=== PATIENT | female | born 1980 | race Caucasian/White ===

== ENCOUNTER 2017-07-03 18:41 | Inpatient (IN) | payer OTHER ==
[~2017-07-03] VITALS: Ht 157.5 cm; Wt 89.5 kg
--- NOTE | 2017-07-03 19:31 | NUR ---
PT TO ED VIA TRIAGE W/ C/O R FLANK PAIN SINCE LAST SATURDAY HX OF KIDNEY STONESM, PT ON MONITOR VSS AWAIT ORDERS AND DISPO
[2017-07-03 20:06] LABS: BASOPHIL % 0.2 % (0-2); PLATELET COUNT 212 x10^3mcL (130-400); RED CELL DISTRIBUTION WIDTH 12.9 % (11.5-14.5)
[2017-07-03 20:14] LABS: CALCIUM 8.5 mg/dL (8.5-10.1); CARBON DIOXIDE 22.3 mmol/L (21-32); CHLORIDE SERUM 104 mmol/L (98-107); CREATININE SERUM 0.9 mg/dL (0.6-1.0); GFR1 > 60 mL/min; GLUCOSE SERUM 99 mg/dL (74-106); POTASSIUM SERUM 3.4 mmol/L (3.5-5.1); SODIUM SERUM 137 mmol/L (136-145)
[2017-07-03 20:19] LABS: ALKALINE PHOSPHATASE 84 U/L (46-116); ALT/SGPT 34 U/L (14-59); AST/SGOT 28 U/L (15-37); BILIRUBIN TOTAL 0.9 mg/dL (0.20-1.00); TOTAL PROTEIN, SERUM 8.2 g/dL (6.4-8.2); URIC ACID 2.5 mg/dL (2.6-6.0)
[2017-07-03 20:21] LABS: ALBUMIN 3.3 g/dL (3.4-5.0)
--- NOTE | 2017-07-03 21:22 | NUR ---
PT RESTING ON [facility] FAMILY AT BEDSIDE AWAIT RESULTS AND DISPO, VSS
--- NOTE | 2017-07-03 23:02 | NUR ---
REPORT CALLED TO FLOOR RN ALL QUESTIONS ASKED AND ANSWERED PT STABLE FOR TRANSFER, IVF RUNNING W/O COMPLICATIONS PT TRANSFERED TO ROOM 206A VIA [facility] ON MONITOR W/ RN. W/ ALL PERSONAL BELONGINGS
[2017-07-03 23:25] VITALS: BP 130/74
[2017-07-03 23:41] LABS: PHOSPHOROUS 2.5 mg/dL (2.5-4.9)
--- NOTE | 2017-07-03 23:41 | NUR ---
RECEIVED PT FROM ER VIA GURNEY ACCOMPANIED WITH NURSE AND EMT, PT SEEN, ALERT AND ORIENTED, DENIES DIZZINESS, C/O OF HEADACHE, PT WITH FEVER-101.8, COOLING MEASURE APPLIED, ON TELE#23 NSR, DENIES CHEST PAIN, PT STILL WITH BOLUS FROM ER, PULSES PALPABLE, NO EDEMA NOTED, AMBULATORY WITH STEADY GAIT, ABD ROUND AND SOFT WITH ACTIVE BS, NO BM AT THIS TIME, C/O OF SLIGHT BURNING ON URINATION, ENDORSED TO PRIMARY NURSE-ULZ FOR CONT NURSING CARE.
[2017-07-03 23:43] LABS: CHOLESTEROL/HDL RATIO 3.2
[2017-07-03 23:44] LABS: FREE T4 1.24 ng/dL (0.76-1.46); FREE THYROXINE INDEX 2.9 ug/dL (1.4-4.5); T4(THYROXINE) 7.3 ug/dL (4.7-13.3)
[2017-07-03 23:51] LABS: AMPHETAMINE QUAL UR NONE DETECTED (NEG <=1000); microscopic required? YES
[2017-07-03 23:52] LABS: urine erythrocyte 3+ (NEGATIVE)
[2017-07-04 00:16] LABS: T3 TOTAL 0.75 ng/mL
--- NOTE | 2017-07-04 02:00 | NUR ---
2L BOLUS COMPLETED. PT'S BP-119/73. NO DISTRESS OBSERVED AT THIS TIME. WILL CONTINUE TO MONITOR.
--- NOTE | 2017-07-04 03:08 | NUR ---
PT COMPLAINING OF 8/10 FLANK PAIN. ADMINISTERED MORPHINE ORDERED. WILL MONITOR FOR RELIEF.
[2017-07-04 05:53] VITALS: BP 115/65
[2017-07-04 06:10] LABS: PLATELET COUNT 204 x10^3mcL (130-400); RED CELL DISTRIBUTION WIDTH 12.8 % (11.5-14.5)
--- NOTE | 2017-07-04 06:14 | NUR ---
PT SLEPT WELL THROUGHOUT THE NIGHT. PT DENIES BACK PAIN AT THIS TIME. IVF INFUSING WELL. ALL NEEDS MET. WILL ENDORSE CARE TO AM NURSE.
[2017-07-04 06:20] LABS: CARBON DIOXIDE 20.2 mmol/L (21-32); CHLORIDE SERUM 106 mmol/L (98-107); CREATININE SERUM 0.8 mg/dL (0.6-1.0); GFR1 > 60 mL/min; GLUCOSE SERUM 86 mg/dL (74-106); POTASSIUM SERUM 3.5 mmol/L (3.5-5.1); SODIUM SERUM 138 mmol/L (136-145)
[2017-07-04 06:48] LABS: BAND NEUTROPHIL 3 % (0-10); MONOCYTE 10 % (0-7); SEGMENTED NEUTROPHILS 78 % (37-75)
[2017-07-04 06:49] LABS: rbc morphology (normal/abnorm) NORMAL (NORMAL)
--- NOTE | 2017-07-04 08:15 | NUR ---
ALERT AND ORIENTED. BREATHING FREELY ON RA. CURRENTLY NO DIET ORDER. TELE # 23 NSR. NS INFUSING 160 CC HOUR. STRAINING ALL URINE. C/O RIGHT FLANK PAIN 04/29 [place]ARP. WILL ADMIN MORPHINE 2 MG IV ORDERED. INDEPENDENT W ADL'S. WEARS SCD'S. CALL LIGHT WITHIN REACH.
[2017-07-04 10:52] VITALS: BP 120/67
[2017-07-04 14:00] VITALS: BP 118/69
[2017-07-04 17:34] VITALS: BP 127/81
--- NOTE | 2017-07-04 18:54 | NUR ---
TORADOL HELPFUL FOR RT FLANK PAIN. CONTINUES NS 160 CC HOUR. ROCEPHIN. REG DIET. INDEPENDENT W ADL'S. STRAINING ALL URINE. CALL LIGHT WITHN REACH.
--- NOTE | 2017-07-04 19:30 | NUR ---
PT A/O X4. TELE #23, NSR AT 73, DENIES CHEST PAIN. PULSES PALPABLE, NO EDEMA NOTED. LUNG SOUNDS CTA, BREATHING ON RA, NO RESP DISTRESS NOTED. ABD SOFT AND NONDISTENDED, BOWEL TONES ACTIVE, PT'S LBM-TODAY, FORMED. VOIDS ADEQUATELY, STRAIN ALL URINE. PT IS AMBULATORY WITHOUT ASSIST. SKIN IS INTACT. PT DENIES PAIN AT THIS TIME. IVF INFUSING WELL TO LFA. BED IN LOWEST SETTING, SIDE RAIL UP X2, CALL LIGHT WITHIN REACH. WILL CONTINUE TO MONITOR.
[2017-07-04 20:58] VITALS: BP 110/62
--- NOTE | 2017-07-05 02:01 | NUR ---
PT SLEEPING AT THIS TIME. BREATHING IS EVEN AND UNLABORED, NO SIGNS OF RESP DISTRESS NOTED, NO SIGNS OF PAIN OBSERVED. IVF IS INFUSING WELL. WILL CONTINUE TO MONITOR.
--- NOTE | 2017-07-05 04:36 | NUR ---
PT COMPLAINING OF 7/10 HEADACHE. ADMINISTERED TYLENOL ORDERED. WILL MONITOR FOR RELIEF.
[2017-07-05 05:43] VITALS: BP 120/70
[2017-07-05 06:30] LABS: BASOPHIL % 0.3 % (0-2); PLATELET COUNT 200 x10^3mcL (130-400)
--- NOTE | 2017-07-05 06:44 | NUR ---
PT SLEPT WELL THROUGHOUT THE NIGHT, PT DENIES FLANK PAIN AT THIS TIME. PT DENIES HEADACHE. ALL URINE STRAINED. IVF INFUSING WELL TO LFA. ALL NEEDS MET. WILL ENDORSE CARE TO AM NURSE.
[2017-07-05 07:05] LABS: CALCIUM 8.1 mg/dL (8.5-10.1); CARBON DIOXIDE 20.6 mmol/L (21-32); CHLORIDE SERUM 109 mmol/L (98-107); CREATININE SERUM 0.7 mg/dL (0.6-1.0); GFR1 > 60 mL/min; GLUCOSE SERUM 86 mg/dL (74-106); PHOSPHOROUS 2.8 mg/dL (2.5-4.9); POTASSIUM SERUM 3.4 mmol/L (3.5-5.1); SODIUM SERUM 140 mmol/L (136-145)
--- NOTE | 2017-07-05 07:45 | NUR ---
RECEIVED PATIENT RESTING IN BED COMFORTABLY A/O X4, CLEAR SPEECH, DENIES ADLER OR DIZZINESS. TELE # [address], DENIES CHEST PAIN, BREAHTING EVEN UNLABBORED ON RA, DENIES SOB, NO DISTRESS NOTED. SKIN IS WARM CDI WITH IV TO LFA INTACT INFUSING NS AT 160 ML/HR FREE FROM REDNESS AND INFILTRATION. PATIENT INSTRUCTED TO CONTINUE TO STRAIN ALL URINE TO SEE IF STONE HAS PASSED, VERBALIZED UNDERSTANDING. PATIENT CALM WITH CARE. INSTRUCTED TO CALL FOR ASSISTANCE IF NEEDED. CALL LIGHT WITHIN REACH, BED IN LOW POSITION. WILL CONTINUE TO MONITOR AND MAINTAIN SAFETY.
--- NOTE | 2017-07-05 08:18 | NUR ---
ROUNDS MADE- DR. BADILLO, RESIDENT TEAM, CHARGE NURSE AND PRIMARY NURSE AT BEDSIDE. POC REVIEWED WITH PATIENT- PATIENT WITH HISTORY OF KIDNEY STONES, ENCOURAGED LIFE STYLE CHANGES WHICH PATIENT STATES SHE HAS MADE. PATIENT WILL BE SEEN BY UROLOGIST AND HAVE A RETROGRADE CYSTO-URETROGRAM DONE TODAY. IF OKAY PATIENT MAY BE DISCHARGED HOME TODAY. ALL QUESTIONS AND CONCERNS ADDRESSED. WILL MONITOR.
[2017-07-05 09:35] VITALS: BP 105/60
--- NOTE | 2017-07-05 12:20 | NUR ---
PATIENT TAKEN DOWN TO RADIOLOGY FOR PROCEDURE. GLASS VIAL BENDING CONVEYOR FEEDER AWARE.
[2017-07-05 12:26] LABS: UA SPECIFIC GRAVITY <=1.005 (1.005-1.035); microscopic required? YES; urine erythrocyte 2+ (NEGATIVE)
--- NOTE | 2017-07-05 13:00 | NUR ---
RECEIVED PATIENT BACK FROM RADIOLOGY, FAMILY AT BEDSIDE. HARDWARE SALES ASSISTANT MADE AWARE. WILL MONITOR.
[2017-07-05 13:15] VITALS: BP 142/80
--- NOTE | 2017-07-05 16:48 | NUR ---
PATIENT C/O THROBBING RIGHT FLANK PAIN 04/29, TORADOL 30 MG IVP Q6H PRN GIVEN AT THIS TIME PER MD ORDER. PATIENTS MOTHER AT BEDSIDE, ALL NEEDS ATTENDED TO. WILL MONITOR.
--- NOTE | 2017-07-05 17:10 | NUR ---
DR. PICKARD (DO-RESIDENT) AT BEDSIDE TO SPEAK WITH PATIENT REGARDING PLAN OF CARE. PATIENT WAITING TO BE SEEN BY UROLOGIST. ALL QUESTIONS AND CONCERNS ADDRESSED. WILL MONITOR.
[2017-07-05 17:30] VITALS: BP 149/87
--- NOTE | 2017-07-05 19:20 | NUR ---
REPORT GIVEN TO ZOHRA EMMANUEL, ALL QUESTIONS AND CONCERNS ADDRESSED. ALL CARES ENDORSED.
--- NOTE | 2017-07-05 19:55 | NUR ---
Awake and verbally responsive. No resp.distress noted on room air. Denies pain at this time. Denies n/v. Denies dysuria or hematuria. Will cont.to monitor. CAll light within reach. Pending Urology consult.
[2017-07-05] MEDS ORDERED: BD LACTINEX1.4 MG PO (20:45)
[2017-07-05] MEDS ORDERED: LEVAQUIN750 MG PO (20:45)
[2017-07-05] MEDS ORDERED: FLO4 PO (20:46)
[2017-07-05 20:49] VITALS: BP 129/70
[2017-07-05 21:10] VITALS: BP 129/70
--- NOTE | 2017-07-05 21:14 | NUR ---
Discharge order noted. Patient will go home tonight. Mother at the bedside.
--- NOTE | 2017-07-05 21:24 | NUR ---
Discharge instructions and prescription given to patient and verbalized understanding. Assisted via wheelchair to lobby. In no apparent distress.
[2017-07-06] MEDS ORDERED: MAC100 PO (12:44)
== END 2017-07-05 21:35 | disposition home or self-care (01) | DRG 720 ==
LOC: ED 18:41 → DU 21:55
PROVIDERS: Emergency Medicine; ADMIT Family Medicine
DX: A41.9 Sepsis, unspecified organism (principal); N17.0 Acute kidney failure with tubular necrosis; R65.20 Severe sepsis without septic shock; E44.1 Mild protein-calorie malnutrition; N39.0 Urinary tract infection, site not specified; K80.20 Calculus of gallbladder without cholecystitis without obstruction; R31.9 Hematuria, unspecified; E87.6 Hypokalemia; Z87.442 Personal history of urinary calculi; Z87.891 Personal history of nicotine dependence; Z53.29 Procedure and treatment not carried out because of patient's decision for other reasons; Z68.36 Body mass index [BMI] 36.0-36.9, adult; N20.0 Calculus of kidney; E83.51 Hypocalcemia
CPT/HCPCS: 51610; 83880; 84439; J0696; J1885; J2270; J2405; J7030; Q9958

== ENCOUNTER 2018-05-24 08:36 | Emergency (ER) | payer OTHER ==
[~2018-05-24] VITALS: Ht 160 cm; Wt 9.5 kg
[~2018-05-24 08:36] MED LIST: BD LACTINEX1.4 MG PO; FLO4 PO; LEVAQUIN750 MG PO; MAC100 PO
[2018-05-24 08:41] VITALS: Ht 160 cm; Wt 9.5 kg
[2018-05-24 09:59] LABS: CALCIUM 8.8 mg/dL (8.5-10.1); CARBON DIOXIDE 22.4 mmol/L (21-32); CHLORIDE SERUM 106 mmol/L (98-107); CREATININE SERUM 0.8 mg/dL (0.6-1.0); GFR1 > 60 mL/min; GLUCOSE SERUM 93 mg/dL (74-106); POTASSIUM SERUM 3.8 mmol/L (3.5-5.1); SODIUM SERUM 138 mmol/L (136-145)
[2018-05-24 10:02] LABS: BASOPHIL % 0.4 % (0-2); PLATELET COUNT 220 x10^3mcL (130-400); RED CELL DISTRIBUTION WIDTH 12.8 % (11.5-14.5)
[2018-05-24 10:03] LABS: ALKALINE PHOSPHATASE 87 U/L (46-116); ALT/SGPT 18 U/L (14-59); AST/SGOT 15 U/L (15-37); BILIRUBIN TOTAL 0.6 mg/dL (0.20-1.00); CHOLESTEROL 162 mg/dL (<200); CHOLESTEROL/HDL RATIO 3.9; HDL CHOLESTEROL 42 mg/dL (40-60); TOTAL PROTEIN, SERUM 8.2 g/dL (6.4-8.2); TRIGLYCERIDES 78 mg/dL (<150)
[2018-05-24 10:31] LABS: AMPHETAMINE QUAL UR NONE DETECTED (See below)
[2018-05-24 14:42] VITALS: BP 134/70
== END 2018-05-24 14:42 | disposition home or self-care (01) ==
LOC: ED 08:36
PROVIDERS: Emergency Medicine
DX: R07.89 Other chest pain (principal); E66.9 Obesity, unspecified; F17.200 Nicotine dependence, unspecified, uncomplicated; Z76.0 Encounter for issue of repeat prescription; J45.909 Unspecified asthma, uncomplicated
CPT/HCPCS: 36415; 83880; 85378; 99406; Q0092

== ENCOUNTER 2018-06-19 09:52 | Emergency (ER) | payer OTHER ==
[~2018-06-19] VITALS: Ht 160 cm; Wt 93.4 kg
[2018-06-19 09:56] VITALS: Ht 160 cm; Wt 93.4 kg
[2018-06-19 11:06] LABS: BASOPHIL % 1.4 % (0-2); PLATELET COUNT 266 x10^3mcL (130-400); RED CELL DISTRIBUTION WIDTH 13.4 % (11.5-14.5)
[2018-06-19 11:22] LABS: CALCIUM 9.1 mg/dL (8.5-10.1); CARBON DIOXIDE 21.3 mmol/L (21-32); CHLORIDE SERUM 106 mmol/L (98-107); CREATININE SERUM 0.7 mg/dL (0.6-1.0); GFR1 > 60 mL/min; GLUCOSE SERUM 84 mg/dL (74-106); POTASSIUM SERUM 3.6 mmol/L (3.5-5.1); SODIUM SERUM 140 mmol/L (136-145)
[2018-06-19 12:07] VITALS: BP 119/57
== END 2018-06-19 12:07 | disposition home or self-care (01) ==
LOC: ED 09:52
PROVIDERS: Emergency Medicine
DX: J44.9 Chronic obstructive pulmonary disease, unspecified (principal); F41.9 Anxiety disorder, unspecified; R07.89 Other chest pain
CPT/HCPCS: 36415; 85378; J7613; Q0092

== ENCOUNTER 2019-02-18 13:53 | Emergency (ER) | payer OTHER ==
[~2019-02-18] VITALS: Ht 160 cm; Wt 111.1 kg
[2019-02-18 14:06] VITALS: Ht 160 cm; Wt 111.1 kg
[2019-02-18 16:03] LABS: BASOPHIL % 0.5 % (0-2); PLATELET COUNT 279 x10^3mcL (130-400); RED CELL DISTRIBUTION WIDTH 13.1 % (11.5-14.5)
[2019-02-18 16:16] LABS: CALCIUM 8.8 mg/dL (8.5-10.1); CARBON DIOXIDE 21.8 mmol/L (21-32); CHLORIDE SERUM 103 mmol/L (98-107); CREATININE SERUM 0.8 mg/dL (0.6-1.0); GFR1 > 60 mL/min; GLUCOSE SERUM 83 mg/dL (74-106); POTASSIUM SERUM 3.5 mmol/L (3.5-5.1); SODIUM SERUM 137 mmol/L (136-145)
[2019-02-18 16:20] LABS: ALBUMIN 3.4 g/dL (3.4-5.0); ALKALINE PHOSPHATASE 63 U/L (46-116); ALT/SGPT 41 U/L (14-59); AST/SGOT 26 U/L (15-37); BILIRUBIN TOTAL 0.51 mg/dL (0.20-1.00); LIPASE 166 IU/L (73-393); TOTAL PROTEIN, SERUM 8.1 g/dL (6.4-8.2)
[2019-02-18 16:46] LABS: UA SPECIFIC GRAVITY 1.025 (1.005-1.035); microscopic required? YES
[2019-02-18 16:47] LABS: urine erythrocyte 2+ (NEGATIVE)
[2019-02-18 20:45] VITALS: BP 127/39
== END 2019-02-18 20:45 | disposition home or self-care (01) ==
LOC: ED 13:53
PROVIDERS: Emergency Medicine
DX: O23.41 Unspecified infection of urinary tract in pregnancy, first trimester (principal); M54.5 Low back pain; R11.0 Nausea; J44.9 Chronic obstructive pulmonary disease, unspecified; F41.9 Anxiety disorder, unspecified; E66.01 Morbid (severe) obesity due to excess calories; Z68.41 Body mass index [BMI] 40.0-44.9, adult; Z98.890 Other specified postprocedural states; Z3A.08 8 weeks gestation of pregnancy
CPT/HCPCS: J0696; J7030